=== PATIENT | male | born 1990 | race African-American/Black ===

== ENCOUNTER 2017-08-04 13:08 | Emergency (ER) | payer MEDICAID ==
[~2017-08-04] VITALS: Ht 180.3 cm; Wt 74.8 kg
[2017-08-04 13:17] VITALS: BP 164/98
[2017-08-04] MEDS ORDERED: NALOXONE HCL 0.4 MG/ML VIAL ONE (13:27)
[2017-08-04] MEDS ORDERED: NALOXONE HCL 0.4 MG/ML VIAL IM ONE (13:30)
[2017-08-04 13:56] LABS: Basophils # (auto) 0.1 uL; Basophils % (auto) 1.2 % (0.0-2.0); Eosinophils # (auto) 0.1 uL; Eosinophils % (auto) 2.5 % (0.0-7.0); Hemoglobin 10.8 g/dL (13.5-17.5); Lymphocytes # (auto) 2.5 uL; Lymphocytes % (auto) 53.8 % (10.0-50.0); Mean Corpuscular Hemoglobin 30.7 pg (28.0-32.0); Mean Corpuscular Hgb Conc. 32.7 g/dL (32.0-36.0); Mean Corpuscular Volume 93.8 fL (80.0-100.0); Mean Platelet Volume 7.1 fL (6.9-10.8); Monocytes # (auto) 0.4 uL; Monocytes % (auto) 9.4 % (0.0-12.0); Neutrophils # (auto) 1.5 uL; Neutrophils % (auto) 33.1 % (37.0-80.0); Nucleated Red Blood Cells % 0.2 %; Platelet Count (auto) 240 10^3/uL (140-450); Red Cell Distribution Width 17.3 % (11.8-14.3); White Blood Cell 4.6 10^3/uL (4.4-10.8)
[2017-08-04 14:12] LABS: Amylase 85 U/L (25-115)
[2017-08-04 14:15] LABS: Lactic Acid w/Reflex 2.2 mmol/L (0.4-2.0)
[2017-08-04 14:18] LABS: Albumin 2.9 g/dL (3.4-5.0); Alkaline Phosphatase 90 U/L (45-117); Anion Gap 6 (5-15); Aspartate Aminotransferase 99 U/L (15-37); BUN/Creatinine Ratio 14.9; Bilirubin, Total 0.4 mg/dL (0.2-1.0); Blood Urea Nitrogen 11 mg/dL (7-18); Carbon Dioxide 24 mmol/L (21-32); Chloride 108 mmol/L (98-107); GFR African American 163 mL/min; GFR Non-African American 135 mL/min; Glucose 102 mg/dL (74-106); Potassium 4.2 mmol/L (3.5-5.1); Sodium 138 mmol/L (136-145); Total Protein 7.9 g/dL (6.4-8.2)
[2017-08-04 14:19] LABS: REFLEX LACTIC ACID YES OR NO YES
[2017-08-04] MEDS ORDERED: SODIUM CHLORIDE 0.9% 1,000 ML IVB ONE (14:31)
== END 2017-08-04 15:21 | disposition left against medical advice (07) ==
LOC: EDBD 13:08 → ER 13:24
DX: F11.10 Opioid abuse, uncomplicated (principal); R07.9 Chest pain, unspecified; F17.210 Nicotine dependence, cigarettes, uncomplicated
CPT/HCPCS: 36415; 71010; 80053; 82150; 83605; 83690; 84484; 85025; 87040; 93005; 94761; 96372; 99285; J2310

== ENCOUNTER 2017-09-06 00:27 | Emergency (ER) | payer MEDICAID ==
[~2017-09-06] VITALS: Ht 190.5 cm; Wt 52.2 kg
[2017-09-06 02:00] LABS: Basophils # (auto) 0 uL; Basophils % (auto) 0.5 % (0.0-2.0); Eosinophils # (auto) 0.1 uL; Eosinophils % (auto) 1.8 % (0.0-7.0); Hematocrit 32.8 % (41.0-53.0); Hemoglobin 10.7 g/dL (13.5-17.5); Lymphocytes # (auto) 2.5 uL; Lymphocytes % (auto) 40.8 % (10.0-50.0); Mean Corpuscular Hemoglobin 30.2 pg (28.0-32.0); Mean Corpuscular Hgb Conc. 32.6 g/dL (32.0-36.0); Mean Corpuscular Volume 92.7 fL (80.0-100.0); Monocytes # (auto) 0.7 uL; Monocytes % (auto) 11.9 % (0.0-12.0); Neutrophils # (auto) 2.7 uL; Nucleated Red Blood Cells % 0.1 %; Platelet Count (auto) 264 10^3/uL (140-450); Red Cell Distribution Width 17.4 % (11.8-14.3)
[2017-09-06 02:20] LABS: Albumin 3.3 g/dL (3.4-5.0); Anion Gap 6 (5-15); BUN/Creatinine Ratio 17.4; Blood Urea Nitrogen 15 mg/dL (7-18); Calcium 9.1 mg/dL (8.5-10.1); Carbon Dioxide 30 mmol/L (21-32); Chloride 107 mmol/L (98-107); GFR African American 137 mL/min; GFR Non-African American 113 mL/min; Glucose 87 mg/dL (74-106); Potassium 4.5 mmol/L (3.5-5.1); Sodium 143 mmol/L (136-145)
[2017-09-06 02:28] LABS: Alkaline Phosphatase 83 U/L (45-117); Aspartate Aminotransferase 36 U/L (15-37); Bilirubin, Total 0.6 mg/dL (0.2-1.0); Total Protein 8.9 g/dL (6.4-8.2)
[2017-09-06 02:50] VITALS: BP 154/94
== END 2017-09-06 03:19 ==
LOC: ER 00:37
DX: F11.20 Opioid dependence, uncomplicated (principal); F17.210 Nicotine dependence, cigarettes, uncomplicated; F15.10 Other stimulant abuse, uncomplicated
CPT/HCPCS: 36415; 71010; 80053; 80307; 80320; 84484; 85025; 99285; J7030

== ENCOUNTER 2019-03-21 07:18 | Emergency (ER) | payer MEDICAID ==
[2019-03-21] MEDS ORDERED: SODIUM CHLORIDE 0.9% 1,000 ML IVB ONE (07:38)
[2019-03-21] MEDS ORDERED: LORazepam 2MG/ML-1ML VIAL IV ONE (07:45)
[2019-03-21 08:10] LABS: Basophils # (auto) 0 uL; Basophils % (auto) 0.3 % (0.0-2.0); Eosinophils # (auto) 0.1 uL; Eosinophils % (auto) 0.8 % (0.0-7.0); Hematocrit 30.3 % (41.0-53.0); Hemoglobin 9.8 g/dL (13.5-17.5); Lymphocytes # (auto) 3.3 uL; Lymphocytes % (auto) 31.4 % (10.0-50.0); Mean Corpuscular Hemoglobin 30.1 pg (28.0-32.0); Mean Corpuscular Hgb Conc. 32.5 g/dL (32.0-36.0); Mean Corpuscular Volume 92.7 fL (80.0-100.0); Monocytes # (auto) 1.1 uL; Monocytes % (auto) 10.1 % (0.0-12.0); Neutrophils # (auto) 6.1 uL; Neutrophils % (auto) 57.4 % (37.0-80.0); Nucleated Red Blood Cells % 0.2 %; Platelet Count (auto) 253 10^3/uL (140-450); Red Blood Cells 3.27 10^6/uL (4.5-5.90); Red Cell Distribution Width 19.3 % (11.8-14.3); White Blood Cell 10.6 10^3/uL (4.4-10.8)
[2019-03-21 08:28] LABS: Albumin 3.2 g/dL (3.4-5.0); Calcium 8.6 mg/dL (8.5-10.1); Magnesium 1.7 mg/dL (1.6-2.6); Potassium 4.5 mmol/L (3.5-5.1)
[2019-03-21 08:32] LABS: Bilirubin, Total 0.8 mg/dL (0.2-1.0)
[2019-03-21] MEDS ORDERED: SODIUM CHLORIDE 0.9% 500 ML IV ONE (19:00)
[2019-03-21 20:22] VITALS: BP 142/83
== END 2019-03-21 22:25 | disposition home or self-care (01) ==
LOC: ER 07:18
DX: F16.159 Hallucinogen abuse with hallucinogen-induced psychotic disorder, unspecified (principal); F15.10 Other stimulant abuse, uncomplicated; F11.10 Opioid abuse, uncomplicated; F17.210 Nicotine dependence, cigarettes, uncomplicated; F24 Shared psychotic disorder; D64.9 Anemia, unspecified; B20 Human immunodeficiency virus [HIV] disease
CPT/HCPCS: 36415; 80053; 83735; 85025; 93005; 94761; 96374; 99284; J2060; J7030; J7040

== ENCOUNTER 2019-09-30 23:49 | Inpatient (IN) | payer MEDICAID ==
[~2019-09-30] VITALS: Ht 190.5 cm; Wt 78.9 kg
[2019-10-01] MEDS ORDERED: SODIUM CHLORIDE 0.9% 2,700 ML IV ONE (01:15)
[2019-10-01 01:17] LABS: Basophils # (auto) 0 uL; Eosinophils # (auto) 0.3 uL; Lymphocytes # (auto) 2.2 uL; Monocytes # (auto) 0.4 uL; Nucleated Red Blood Cells % 0.1 %
[2019-10-01 01:19] LABS: Basophils % (auto) 0.4 % (0.0-2.0); Eosinophils % (auto) 6.7 % (0.0-7.0); Hematocrit 25.5 % (41.0-53.0); Hemoglobin 8.2 g/dL (13.5-17.5); Lymphocytes % (auto) 45.5 % (10.0-50.0); Mean Corpuscular Hemoglobin 28.7 pg (28.0-32.0); Mean Corpuscular Hgb Conc. 32.3 g/dL (32.0-36.0); Mean Corpuscular Volume 88.9 fL (80.0-100.0); Monocytes % (auto) 8.1 % (0.0-12.0); Neutrophils # (auto) 1.9 uL; Neutrophils % (auto) 39.3 % (37.0-80.0); Platelet Count (auto) 312 10^3/uL (140-450); Red Blood Cells 2.87 10^6/uL (4.5-5.90); Red Cell Distribution Width 17.2 % (11.8-14.3); White Blood Cell 4.8 10^3/uL (4.4-10.8)
[2019-10-01 01:30] LABS: Alanine Aminotransferase 22 U/L (16-61); Albumin 2.4 g/dL (3.4-5.0); Anion Gap 6 (5-15); Aspartate Aminotransferase 21 U/L (15-37); BUN/Creatinine Ratio 12.4; Blood Urea Nitrogen 11 mg/dL (7-18); Calcium 7.9 mg/dL (8.5-10.1); Carbon Dioxide 27 mmol/L (21-32); Chloride 105 mmol/L (98-107); GFR African American 130 mL/min; GFR Non-African American 107 mL/min; Glucose 79 mg/dL (74-106); Potassium 3.9 mmol/L (3.5-5.1); Sodium 138 mmol/L (136-145)
[2019-10-01 01:34] LABS: INR 1.06 (0.9-1.15); Partial Thromboplastin Time 32.4 sec (23.64-32.05)
[2019-10-01 01:35] LABS: Alkaline Phosphatase 73 U/L (45-117); Bilirubin, Total 0.4 mg/dL (0.2-1.0); Total Protein 8.9 g/dL (6.4-8.2)
[2019-10-01] MEDS ORDERED: cefTRIAXone SOD 1,000 MG VL ONE (04:58)
[2019-10-01] MEDS ORDERED: VANCOMYCIN 1GM/250ML 250 ML IV ONE ×2 (04:58→05:00)
[2019-10-01] MEDS ORDERED: cefTRIAXone 1GM/50ML D5W 50 ML IV ONE ×2 (05:00→12:45)
[2019-10-01] MEDS ORDERED: SULFAMETH-TRIMETH 80/16MG-ML 15 ML in D5W 5% 500 ML IV SCH ×2 (06:00→14:00)
[2019-10-01] MEDS ORDERED: ALBUTEROL SULF 2.5 MG/0.5ML(0.5%) NEB SOLN NEB PRN ×2 (06:00→12:45)
[2019-10-01] MEDS ORDERED: ACETAMINOPHEN 325 MG TAB PO PRN (06:00)
[2019-10-01] MEDS ORDERED: ONDANSETRON HCL 4 MG/2 ML VIAL IV PRN (06:00)
[2019-10-01] MEDS ORDERED: TEMAZEPAM 15 MG CAP PO PRN (06:00)
[2019-10-01 07:08] VITALS: BP 134/101
[2019-10-01 07:20] LABS: Urine Bacteria NONE SEEN /hpf (None Seen); Urine Blood TRACE /uL (Negative); Urine Mucus FEW (None Seen); Urine Specific Gravity 1.016 (1.001-1.035); Urine WBC <1 /hpf (0 - 3)
--- NOTE | 2019-10-01 07:41 | NUR ---
Patient arrived on floor from Emergency Room. Patient is awake/alert and oriented x 4. No complaints of pain noted. Will monitor for any changes in condition.
[2019-10-01 07:53] LABS: Alcohol, Urine < 3.0 mg/dL (0-5); Amphetamine Screen, Urine POSITIVE (NEGATIVE); Barbiturate Scree,Urine NEGATIVE (NEGATIVE); Benzodiazephine Screen, Urine NEGATIVE (NEGATIVE); Cannabinoid Screen, Urine NEGATIVE (NEGATIVE); Cocaine Screen, Urine NEGATIVE (NEGATIVE); Opiate Scree,Urine POSITIVE (NEGATIVE); Phencyclidine Screen, Urine NEGATIVE (NEGATIVE)
--- NOTE | 2019-10-01 08:13 | NUR ---
Respiratory note: ASSESSED PT FOR PRN TX PT WAS AWAKE AND ALERT NO RESP DISTRESS NOTED. HR 90, RR 16, SPO2 100%. BS ARE CLEAR AND DIMINISHED, NO INDICATION FOR TX AT THIS TIME. PT KNOWS TO HAVE RT PAGED IF TX IS NEEDED.
[2019-10-01 09:22] VITALS: BP 129/73
[2019-10-01] MEDS: FAMOTIDINE 20 MG TAB PO SCH ×2 (10:37→22:02)
[2019-10-01] MEDS ORDERED: ACETYLCYSTEINE 10 %(100MG/ML) SOL 4ML NEB SCH (12:45)
[2019-10-01] MEDS ORDERED: AZITHROMYCIN 500MG/ 250ML 250 ML IV ONE (12:45)
[2019-10-01 13:00] VITALS: BP 130/68
[2019-10-01] MEDS: EMTRICITABINE-TENOFOVIR 200/300MG(TRUVADA) PO SCH (16:30)
[2019-10-01 17:00] VITALS: BP 143/82
--- NOTE | 2019-10-01 19:40 | NUR ---
Opening Shift Note Assumed care of patient, awake and alert. No S/S of distress/SOB or pain. Instructed on POC and to call for assist PRN. Bed in lowest locked position, call light within reach, side rails up x2. Will continue to monitor for changes Q1hr and PRN.
[2019-10-01] MEDS: ALBUTEROL SULF 2.5 MG/0.5ML(0.5%) NEB SOLN NEB SCH (19:49)
[2019-10-01] MEDS: ACETYLCYSTEINE 10 %(100MG/ML) SOL 4ML NEB SCH (19:49)
[2019-10-01 22:00] VITALS: BP 148/86
[2019-10-02] MEDS: ALBUTEROL SULF 2.5 MG/0.5ML(0.5%) NEB SOLN NEB SCH ×3 (00:28→11:57)
[2019-10-02] MEDS: ACETYLCYSTEINE 10 %(100MG/ML) SOL 4ML NEB SCH ×3 (00:29→11:58)
[2019-10-02 05:00] VITALS: BP 133/79
[2019-10-02 06:31] LABS: Basophils # (auto) 0 uL; Basophils % (auto) 0.4 % (0.0-2.0); Eosinophils # (auto) 0.2 uL; Eosinophils % (auto) 4.3 % (0.0-7.0); Hematocrit 29.7 % (41.0-53.0); Hemoglobin 9.8 g/dL (13.5-17.5); Lymphocytes # (auto) 2.5 uL; Lymphocytes % (auto) 48.4 % (10.0-50.0); Mean Corpuscular Hemoglobin 28.7 pg (28.0-32.0); Mean Corpuscular Hgb Conc. 32.8 g/dL (32.0-36.0); Mean Corpuscular Volume 87.4 fL (80.0-100.0); Monocytes # (auto) 0.5 uL; Monocytes % (auto) 9.8 % (0.0-12.0); Neutrophils # (auto) 1.9 uL; Neutrophils % (auto) 37.1 % (37.0-80.0); Nucleated Red Blood Cells % 0.5 %; Platelet Count (auto) 361 10^3/uL (140-450); Red Cell Distribution Width 17.1 % (11.8-14.3); White Blood Cell 5.2 10^3/uL (4.4-10.8)
[2019-10-02 06:51] LABS: Calcium 7.6 mg/dL (8.5-10.1); Potassium 3.8 mmol/L (3.5-5.1)
[2019-10-02 06:54] LABS: BUN/Creatinine Ratio 10.6
--- NOTE | 2019-10-02 07:30 | NUR ---
Opening Shift Note Assumed care of patient, awake and alert. No S/S of distress/SOB or pain. For safety patients bed is locked, in the lowest position, with 2 side rails up. Instructed on POC and to call for assist PRN, will continue to monitor for any changes in condition.
[2019-10-02 08:00] VITALS: BP 126/73
[2019-10-02] MEDS ORDERED: cefTRIAXone 1GM/50ML D5W 50 ML IV SCH (09:00)
[2019-10-02] MEDS: FAMOTIDINE 20 MG TAB PO SCH (09:09)
[2019-10-02] MEDS: EMTRICITABINE-TENOFOVIR 200/300MG(TRUVADA) PO SCH (09:10)
[2019-10-02] MEDS ORDERED: EMTRICITABINE PO SCH (10:00)
[2019-10-02] MEDS ORDERED: AZITHROMYCIN 500MG/ 250ML 250 ML IV SCH (10:00)
[2019-10-02] MEDS ORDERED: [UNRECOGNIZED DRUG - OTHER] PO SCH (10:00)
[2019-10-02] MEDS ORDERED: TENOFOVIR DISOPROXIL FUMARATE PO SCH (10:00)
[2019-10-02] MEDS ORDERED: LEVO750T64 PO (11:23)
[2019-10-02] MEDS ORDERED: AZIT500T66 PO (11:23)
[2019-10-02 11:59] VITALS: BP 137/77
--- NOTE | 2019-10-02 13:48 | NUR ---
Discharge instructions given as ordered. Encourage to follow up with the [facility] department in [place] for follow up care as instructed. All questions and concerns addressed. Patient verbalized understanding. Medication reconciliation form completed and copy given to patient. IV removed with catheter intact, and pressure dressing applied. Patient taken to vehicle via wheelchair with all personal belongings, accompanied by staff. No distress noted at time of departure.
== END 2019-10-02 13:55 | disposition home or self-care (01) | DRG 139 ==
LOC: EDBD 23:49 → ER 23:51 → WEST WING 23:52
PROVIDERS: ADMIT Nurse Practitioner; ATTEND Internal Medicine
DX: J18.9 Pneumonia, unspecified organism (principal); E43 Unspecified severe protein-calorie malnutrition; G47.00 Insomnia, unspecified; D64.9 Anemia, unspecified; Z82.49 Family history of ischemic heart disease and other diseases of the circulatory system; Z68.21 Body mass index [BMI] 21.0-21.9, adult
CPT/HCPCS: 36415; 71045; 71046; 80048; 80053; 80307; 81001; 83605; 83615; 83880; 84484; 85025; 85610; 85730; 86360; 87040; 94640; 96365; 96368; G0378; J0696; J3490

== ENCOUNTER 2019-10-10 17:10 | Emergency (ER) | payer MEDICAID ==
[~2019-10-10] VITALS: Ht 188 cm; Wt 104.3 kg
[~2019-10-10 17:10] MED LIST: AZIT500T66 PO; LEVO750T64 PO
[2019-10-10] MEDS ORDERED: NALOXONE HCL 0.4 MG/ML VIAL IV ONE (17:30)
[2019-10-10] MEDS ORDERED: SODIUM CHLORIDE 0.9% 1,000 ML IVB ONE (17:39)
[2019-10-10 18:00] VITALS: BP 123/74
[2019-10-10 18:10] LABS: Basophils # (auto) 0 uL; Eosinophils # (auto) 0 uL; Hemoglobin 7.7 g/dL (13.5-17.5); Lymphocytes # (auto) 0.6 uL; Monocytes # (auto) 0 uL; Monocytes % (auto) 0.8 % (0.0-12.0); Neutrophils # (auto) 3.4 uL; Nucleated Red Blood Cells % 0.2 %
[2019-10-10 18:12] LABS: Basophils % (auto) 0.2 % (0.0-2.0); Eosinophils % (auto) 0.5 % (0.0-7.0); Hematocrit 23.7 % (41.0-53.0); Lymphocytes % (auto) 15.5 % (10.0-50.0); Mean Corpuscular Hemoglobin 29.2 pg (28.0-32.0); Mean Corpuscular Hgb Conc. 32.5 g/dL (32.0-36.0); Mean Corpuscular Volume 90.1 fL (80.0-100.0); Platelet Count (auto) 209 10^3/uL (140-450); Red Blood Cells 2.64 10^6/uL (4.5-5.90); Red Cell Distribution Width 19.4 % (11.8-14.3)
[2019-10-10 18:30] LABS: Acetaminophen < 2.0 ug/mL (10-30); Salicylate < 1.7 mg/dL (2.8-20.0)
[2019-10-10 18:32] LABS: Alanine Aminotransferase 72 U/L (16-61); Albumin 2.4 g/dL (3.4-5.0); Anion Gap 7 (5-15); Aspartate Aminotransferase 164 U/L (15-37); BUN/Creatinine Ratio 14.4; Blood Alcohol < 3.0 mg/dL (0-5); Blood Urea Nitrogen 19 mg/dL (7-18); Carbon Dioxide 24 mmol/L (21-32); Chloride 111 mmol/L (98-107); GFR African American 82 mL/min; GFR Non-African American 68 mL/min; Glucose 91 mg/dL (74-106); Magnesium 1.2 mg/dL (1.6-2.6); Potassium 3.8 mmol/L (3.5-5.1); Sodium 142 mmol/L (136-145)
[2019-10-10 18:35] LABS: Alkaline Phosphatase 110 U/L (45-117); Bilirubin, Total 0.9 mg/dL (0.2-1.0); Total Protein 7.4 g/dL (6.4-8.2)
[2019-10-10] MEDS ORDERED: LORazepam 2MG/ML-1ML VIAL IV ONE ×2 (19:15→22:45)
[2019-10-10] MEDS ORDERED: SODIUM CHLORIDE 0.9% 1,000 ML IV ONE (19:15)
[2019-10-10] MEDS ORDERED: ACETAMINOPHEN 500 MG TAB PO ONE (21:15)
[2019-10-10] MEDS ORDERED: cefTRIAXone 1GM/50ML D5W 50 ML IV ONE (21:15)
== END 2019-10-11 01:37 | disposition home or self-care (01) ==
LOC: ER 17:13
DX: T40.601A Poisoning by unspecified narcotics, accidental (unintentional), initial encounter (principal); J18.9 Pneumonia, unspecified organism; R55 Syncope and collapse; F17.210 Nicotine dependence, cigarettes, uncomplicated; F11.10 Opioid abuse, uncomplicated; Y92.89 Other specified places as the place of occurrence of the external cause
CPT/HCPCS: 36415; 71045; 80053; 80320; 80329; 83605; 83735; 85025; 87040; 93005; 96361; 96365; 96375; 99284; J0696; J2060; J7030

== ENCOUNTER 2020-05-28 01:33 | Inpatient (IN) | payer MEDICAID ==
[~2020-05-28] VITALS: Ht 190.5 cm; Wt 87.7 kg
[2020-05-28 02:16] LABS: Hemoglobin 12.1 g/dL (13.5-17.5); Mean Corpuscular Hgb Conc. 32.8 g/dL (32.0-36.0); Mean Corpuscular Volume 91.5 fL (80.0-100.0); Platelet Count (auto) 257 10^3/uL (140-450); Red Blood Cells 4.04 10^6/uL (4.5-5.90); Red Cell Distribution Width 15.4 % (11.8-14.3); White Blood Cell 5.5 10^3/uL (4.4-10.8)
[2020-05-28 02:31] LABS: Basophils % (manual) 0 (0.0-2.0); Blast Cells 0; Metamyelocytes % 0; Myelocytes % 0; Promyelocytes % 0; Reactive Lymphocytes 0
[2020-05-28 02:40] LABS: INR 0.97 (0.9-1.15); Partial Thromboplastin Time 27.6 sec (23.0-31.2)
[2020-05-28 02:47] LABS: Alanine Aminotransferase 31 U/L (16-61); Albumin 3.4 g/dL (3.4-5.0); Anion Gap 4 (5-15); Aspartate Aminotransferase 29 U/L (15-37); BUN/Creatinine Ratio 16.8; Blood Urea Nitrogen 18 mg/dL (7-18); Calcium 8.9 mg/dL (8.5-10.1); Carbon Dioxide 32 mmol/L (21-32); Chloride 101 mmol/L (98-107); GFR African American 104 mL/min; GFR Non-African American 86 mL/min; Glucose 94 mg/dL (74-106); Sodium 137 mmol/L (136-145)
[2020-05-28 02:52] LABS: Alkaline Phosphatase 90 U/L (45-117); Bilirubin, Total 0.7 mg/dL (0.2-1.0); Total Protein 9.6 g/dL (6.4-8.2)
[2020-05-28 02:59] LABS: Band Neutrophils % (manual) 4; Eosinophils % (manual) 7 (0-7); Lymphocytes % (manual) 72 (10.0-50.0); Monocytes % (manual) 6 (0-12)
[2020-05-28 04:30] LABS: Alcohol, Urine < 3.0 mg/dL (0-10); Amphetamine Screen, Urine POSITIVE (NEGATIVE); Barbiturate Scree,Urine NEGATIVE (NEGATIVE); Benzodiazephine Screen, Urine NEGATIVE (NEGATIVE); Cannabinoid Screen, Urine NEGATIVE (NEGATIVE); Cocaine Screen, Urine NEGATIVE (NEGATIVE); Phencyclidine Screen, Urine NEGATIVE (NEGATIVE)
[2020-05-28 04:38] LABS: Opiate Scree,Urine POSITIVE (NEGATIVE)
[2020-05-28] MEDS ORDERED: IOHEXOL 300 MG/ML 100ML BOTTLE IJ ONE (05:54)
[2020-05-28] MEDS ORDERED: IOHEXOL 350 MG/ML 100ML IJ ONE (06:25)
[2020-05-28] MEDS ORDERED: PIPERACILLIN-TAZOB 3.375GM 100 ML IV ONE (07:45)
[2020-05-28] MEDS ORDERED: VANCOMYCIN 1GM/250ML 250 ML IV ONE (12:15)
[2020-05-28] MEDS: SODIUM CHLORIDE 0.9% 1,000 ML IV SCH ×2 (12:57→20:57)
[2020-05-28] MEDS ORDERED: traMADol HCL 50 MG TAB PO PRN (13:00)
[2020-05-28] MEDS ORDERED: VANCOMYCIN PER PHARMACY 0 MG IV SCH (13:00)
[2020-05-28] MEDS ORDERED: ACETAMINOPHEN 500 MG TAB PO PRN (13:00)
[2020-05-28] MEDS ORDERED: PROMETHAZINE HCL 25 MG/ML 1ML IV PRN (13:00)
[2020-05-28] MEDS ORDERED: NITROGLYCERIN 0.4 MG SL TAB SL PRN (13:00)
[2020-05-28] MEDS ORDERED: cefTRIAXone 1GM/50ML D5W 50 ML IV ONE (13:00)
[2020-05-28] MEDS ORDERED: TEMAZEPAM 15 MG CAP PO PRN (13:00)
[2020-05-28] MEDS ORDERED: MORPHINE SULF INJ 2 MG/ML SYRINGE 1ML IV PRN (13:00)
[2020-05-28] MEDS ORDERED: NICOTINE 21MG/24 HR TOPICAL PATCH TD ONE (13:15)
[2020-05-28] MEDS: MORPHINE SULF INJ 2 MG/ML SYRINGE 1ML IV PRN ×3 (14:55→20:49)
--- NOTE | 2020-05-28 19:10 | NUR ---
Opening Shift Note Assumed care of patient, awake and alert. No S/S of distress/SOB or pain. Instructed on POC and to call for assistance PRN, will continue to monitor for changes Q1hr and PRN. Safety precautions in place bed is in lowest position and locked, bed rails 2x. Call light and bedside table are within reach.
[2020-05-28] MEDS: VANCOMYCIN 1GM/250ML 250 ML IV SCH (20:23)
[2020-05-28] MEDS: cefTRIAXone 1GM/50ML D5W 50 ML IV SCH (21:21)
[2020-05-28 22:00] VITALS: BP 141/75
[2020-05-29] MEDS: MORPHINE SULF INJ 2 MG/ML SYRINGE 1ML IV PRN ×2 (01:37→13:46)
[2020-05-29] MEDS: VANCOMYCIN 1GM/250ML 250 ML IV SCH ×2 (04:00→12:23)
[2020-05-29] MEDS: SODIUM CHLORIDE 0.9% 1,000 ML IV SCH ×2 (04:18→12:23)
[2020-05-29 05:05] LABS: Hematocrit 33.5 % (41.0-53.0); Hemoglobin 10.8 g/dL (13.5-17.5); Mean Corpuscular Hemoglobin 29.5 pg (28.0-32.0); Mean Corpuscular Hgb Conc. 32.1 g/dL (32.0-36.0); Platelet Count (auto) 228 10^3/uL (140-450); Red Blood Cells 3.65 10^6/uL (4.5-5.90); White Blood Cell 4.9 10^3/uL (4.4-10.8)
[2020-05-29 05:19] LABS: Band Neutrophils % (manual) 0; Basophils % (manual) 0 (0.0-2.0); Blast Cells 0; Metamyelocytes % 0; Myelocytes % 0; Promyelocytes % 0; Reactive Lymphocytes 0
[2020-05-29 05:26] LABS: BUN/Creatinine Ratio 13.3; Calcium 8.4 mg/dL (8.5-10.1); Potassium 3.8 mmol/L (3.5-5.1)
[2020-05-29 05:58] VITALS: BP 127/86
--- NOTE | 2020-05-29 07:05 | NUR ---
End of Shift Note Endorsed care to dayshift RN. At this time patient has no s/s of distress or SOB.
[2020-05-29 07:59] LABS: Eosinophils % (manual) 7 (0-7); Lymphocytes % (manual) 60 (10.0-50.0); Monocytes % (manual) 8 (0-12)
[2020-05-29] MEDS: cefTRIAXone 1GM/50ML D5W 50 ML IV SCH (08:25)
[2020-05-29 09:00] VITALS: BP 129/73
[2020-05-29 13:00] VITALS: BP 136/87
--- NOTE | 2020-05-29 16:17 | NUR ---
Patient eloped This nurse was notified after returning from lunch that a second COVID swab was needed. Went in to patient's room and he was not in the room or bathroom. He did not have an AMA to go smoke. Waited 20-30 minutes and went back. Patient was still not in room. His tank top, socks, mask, and cell phone were still in the room. Charge nurse was notified. Hospital security was notified. Security, charge nurses, and this nurse all looked around the inside of the hospital and did not find the patient anywhere. Patient had unhooked the IV from the machine. This nurse contacted the sherriff's department because the patient still has an IV intact as far as we know. He also still had the telemetry box on when last seen. Charge nurse is aware of this. Belongings were collected in patient belongings bag and placed in locked soiled utility room per charge nurse.
--- NOTE | 2020-05-29 17:00 | NUR ---
Update - tele box returned Patient returned to the ED requesting his cell phone that he had left in his room. The charge nurse went downstairs and said he needed to return the telemetry box. He left and came back and returned the telemetry box and was given his belongings.
== END 2020-05-29 16:17 | disposition left against medical advice (07) | DRG 139 ==
LOC: ER 01:33 → TELE 01:34 → TELE-WESTW 18:03
PROVIDERS: ADMIT Internal Medicine; ATTEND Internal Medicine
DX: J18.9 Pneumonia, unspecified organism (principal); F11.90 Opioid use, unspecified, uncomplicated; F15.90 Other stimulant use, unspecified, uncomplicated; F17.210 Nicotine dependence, cigarettes, uncomplicated; Z53.29 Procedure and treatment not carried out because of patient's decision for other reasons; R07.89 Other chest pain; I10 Essential (primary) hypertension; I76 Septic arterial embolism; Z82.49 Family history of ischemic heart disease and other diseases of the circulatory system; Z21 Asymptomatic human immunodeficiency virus [HIV] infection status
CPT/HCPCS: 36415; 71045; 71275; 80048; 80053; 80202; 80307; 80320; 82550; 83880; 84484; 85007; 85025; 85027; 85379; 85610; 85652; 85730; 87040; 93005; 93306; 96365; 96366; 96367; 96368; G0378; J0696; J2543

== ENCOUNTER 2021-04-27 09:39 | Emergency (ER) | payer MEDICAID, OTHER ==
[~2021-04-27] VITALS: Ht 190.5 cm; Wt 90.7 kg
[~2021-04-27 09:39] MED LIST changes: -AZIT500T66 PO; +DOCU-94 PO; +IBUP600T27 PO; -LEVO750T64 PO; +PANT40TA2 PO
[2021-04-27 10:42] VITALS: BP 147/95
[2021-04-27] MEDS ORDERED: KETOROLAC TROMETH 60MG/2ML VIAL IM ONE (10:45)
== END 2021-04-27 11:22 | disposition home or self-care (01) ==
LOC: ER 09:39
DX: S50.821A Blister (nonthermal) of right forearm, initial encounter (principal); S80.821A Blister (nonthermal), right lower leg, initial encounter; G43.909 Migraine, unspecified, not intractable, without status migrainosus; I10 Essential (primary) hypertension; F17.210 Nicotine dependence, cigarettes, uncomplicated; Z79.1 Long term (current) use of non-steroidal anti-inflammatories (NSAID); Z79.899 Other long term (current) drug therapy; X58.XXXA Exposure to other specified factors, initial encounter; Y93.89 Activity, other specified; Y92.89 Other specified places as the place of occurrence of the external cause; Y99.8 Other external cause status
CPT/HCPCS: 96372; 99283; J1885

== ENCOUNTER 2021-05-14 13:10 | Inpatient (IN) | payer MEDICAID ==
[~2021-05-14] VITALS: Ht 195.6 cm; Wt 79.3 kg
[2021-05-14] MEDS ORDERED: SODIUM CHLORIDE 0.9% 500 ML IV ONE (13:30)
[2021-05-14 15:18] LABS: Basophils # (auto) 0 10 ^3/uL (0-0.2); Eosinophils # (auto) 0.5 10 ^3/uL (0-0.8); Eosinophils % (auto) 13.5 % (0.0-7.0); Hematocrit 31.2 % (41.0-53.0); Hemoglobin 10.2 g/dL (13.5-17.5); Lymphocytes # (auto) 1.7 10 ^3/uL (0.4-5.4); Lymphocytes % (auto) 42.4 % (10.0-50.0); Mean Corpuscular Hgb Conc. 32.8 g/dL (32.0-36.0); Mean Corpuscular Volume 88.6 fL (80.0-100.0); Monocytes # (auto) 0.3 10 ^3/uL (0-1.3); Monocytes % (auto) 8.4 % (0.0-12.0); Neutrophils # (auto) 1.4 10 ^3/uL (1.6-8.6); Neutrophils % (auto) 34.7 % (37.0-80.0); Nucleated Red Blood Cells % 0.2 %; Red Blood Cells 3.52 10^6/uL (4.5-5.90); Red Cell Distribution Width 16.6 % (11.8-14.3)
[2021-05-14 15:34] LABS: Albumin 3.1 g/dL (3.4-5.0); Anion Gap 4 (5-15); Blood Urea Nitrogen 11 mg/dL (7-18); Calcium 8.5 mg/dL (8.5-10.1); Carbon Dioxide 27 mmol/L (21-32); Chloride 106 mmol/L (98-107); Glucose 85 mg/dL (74-106); Potassium 3.8 mmol/L (3.5-5.1); Sodium 137 mmol/L (136-145)
[2021-05-14 15:39] LABS: Alanine Aminotransferase 25 U/L (16-61); Alkaline Phosphatase 93 U/L (45-117); Aspartate Aminotransferase 31 U/L (15-37); BUN/Creatinine Ratio 13.8; Bilirubin, Total 0.6 mg/dL (0.2-1.0); GFR African American 145 mL/min; GFR Non-African American 120 mL/min; Total Protein 10.1 g/dL (6.4-8.2)
[2021-05-14] MEDS ORDERED: ONDANSETRON HCL 4 MG/2 ML VIAL IV PRN (18:30)
[2021-05-14] MEDS ORDERED: ACETAMINOPHEN 500 MG TAB PO PRN (18:30)
[2021-05-14] MEDS ORDERED: NITROGLYCERIN 0.4 MG SL TAB SL PRN (18:30)
[2021-05-14] MEDS ORDERED: SODIUM CHLORIDE 0.9% 1,000 ML IV ONE (18:30)
[2021-05-15 04:27] LABS: Urine Bacteria NONE SEEN /hpf (None Seen); Urine Blood Negative /uL (Negative); Urine Hyaline Cast FEW /lpf (0 - 2); Urine Mucus FEW (None Seen); Urine Specific Gravity 1.027 (1.001-1.035); Urine WBC 2 /hpf (0 - 3)
[2021-05-15 04:30] LABS: Alcohol, Urine < 3.0 mg/dL (0-10); Amphetamine Screen, Urine POSITIVE (NEGATIVE); Barbiturate Scree,Urine NEGATIVE (NEGATIVE); Benzodiazephine Screen, Urine NEGATIVE (NEGATIVE); Cannabinoid Screen, Urine NEGATIVE (NEGATIVE); Cocaine Screen, Urine NEGATIVE (NEGATIVE); Opiate Scree,Urine POSITIVE (NEGATIVE); Phencyclidine Screen, Urine NEGATIVE (NEGATIVE)
[2021-05-15 18:29] VITALS: BP 148/99
[2021-05-15 23:18] VITALS: BP 125/63
[2021-05-16 05:41] VITALS: BP 131/99
[2021-05-16 06:23] LABS: Basophils # (auto) 0 10 ^3/uL (0-0.2); Basophils % (auto) 0.6 % (0.0-2.0); Eosinophils # (auto) 0.3 10 ^3/uL (0-0.8); Hematocrit 31.4 % (41.0-53.0); Hemoglobin 10.6 g/dL (13.5-17.5); Lymphocytes # (auto) 1.8 10 ^3/uL (0.4-5.4); Lymphocytes % (auto) 50.8 % (10.0-50.0); Mean Corpuscular Hemoglobin 29.3 pg (28.0-32.0); Mean Corpuscular Hgb Conc. 33.7 g/dL (32.0-36.0); Mean Corpuscular Volume 86.8 fL (80.0-100.0); Monocytes # (auto) 0.4 10 ^3/uL (0-1.3); Monocytes % (auto) 12.4 % (0.0-12.0); Neutrophils % (auto) 27.2 % (37.0-80.0); Nucleated Red Blood Cells % 0.4 %; Red Blood Cells 3.62 10^6/uL (4.5-5.90); White Blood Cell 3.5 10^3/uL (4.4-10.8)
[2021-05-16 06:54] LABS: BUN/Creatinine Ratio 19.2; Calcium 8.3 mg/dL (8.5-10.1); Magnesium 2.1 mg/dL (1.6-2.6); Potassium 3.6 mmol/L (3.5-5.1)
[2021-05-16 08:30] VITALS: BP 134/79
== END 2021-05-16 12:00 | disposition left against medical advice (07) | DRG 861 ==
LOC: ER 13:10 → TELE 18:23 → TELE-WESTW 05-15 18:02 → WEST WING 05-16 10:47
PROVIDERS: ADMIT Nurse Practitioner Acute Care; ATTEND Internal Medicine
DX: R53.1 Weakness (principal); R04.2 Hemoptysis; E86.0 Dehydration; F11.90 Opioid use, unspecified, uncomplicated; M79.89 Other specified soft tissue disorders; Z20.822 Contact with and (suspected) exposure to COVID-19; F12.90 Cannabis use, unspecified, uncomplicated; I10 Essential (primary) hypertension; Z53.29 Procedure and treatment not carried out because of patient's decision for other reasons; F17.210 Nicotine dependence, cigarettes, uncomplicated; Z91.19 Patient's noncompliance with other medical treatment and regimen; Z79.899 Other long term (current) drug therapy
CPT/HCPCS: 36415; 71045; 80048; 80053; 80307; 81001; 83735; 84484; 85025; 85652; 87040; 87426; 93005; 93306; 93971; 96360; G0378

== ENCOUNTER 2024-06-10 01:35 | Inpatient (IN) | payer MEDICAID ==
[~2024-06-10] VITALS: Ht 190.5 cm; Wt 99.7 kg
[~2024-06-10 01:35] MED LIST changes: +ALBU108A5 INH; +AMLO1TAB23 PO; +BICT1TAB PO; +DIVA250T12 PO; +FLUO-125 PO; +IBUP-1454 PO; -IBUP600T27 PO; +MET25T PO; +QUET50TA PO; +TRAZ-227 PO
[2024-06-10 02:10] LABS: Urine Bacteria None Seen /hpf (None Seen)
[2024-06-10 02:46] LABS: Urine Blood Negative /uL (Negative); Urine Clarity Clear (Clear); Urine Color Light-Yellow (Yellow); Urine Protein, UAD TRACE (Negative); Urine Specific Gravity 1.022 (1.001-1.035); Urine Urobilinogen Normal (Negative); Urine WBC 2 /hpf (0 - 3); Urine pH 6.5 (5.0-9.0)
[2024-06-10 08:03] LABS: Basophils # (auto) 0.1 10 ^3/uL (0-0.2); Eosinophils # (auto) 0.7 10 ^3/uL (0-0.8); Eosinophils % (auto) 12.8 % (0.0-7.0); Hematocrit 33.5 % (41.0-53.0); Hemoglobin 11.1 g/dL (13.5-17.5); Lymphocytes # (auto) 2.5 10 ^3/uL (0.4-5.4); Lymphocytes % (auto) 47.1 % (10.0-50.0); Mean Corpuscular Hemoglobin 33.5 pg (28.0-32.0); Mean Corpuscular Hgb Conc. 33.3 g/dL (32.0-36.0); Mean Corpuscular Volume 100.6 fL (80.0-100.0); Monocytes # (auto) 0.5 10 ^3/uL (0-1.3); Monocytes % (auto) 9.7 % (0.0-12.0); Neutrophils # (auto) 1.6 10 ^3/uL (1.6-8.6); Neutrophils % (auto) 29.4 % (37.0-80.0); Platelet Count (auto) 246 10^3/uL (140-450); Red Blood Cells 3.33 10^6/uL (4.5-5.90); Red Cell Distribution Width 15.1 % (11.8-14.3); White Blood Cell 5.3 10^3/uL (4.4-10.8)
[2024-06-10] MEDS: IOHEXOL 300 MG/ML 100ML BOTTLE IJ ONE (08:06)
[2024-06-10] MEDS: ONDANSETRON HCL 4 MG/2 ML VIAL IV ONE (08:08)
[2024-06-10] MEDS: MORPHINE SULFATE 4 MG/ML SYR/VIAL IV ONE (08:09)
[2024-06-10] MEDS: SODIUM CHLORIDE 0.9% 1,000 ML IV ONE (08:09)
[2024-06-10 08:17] VITALS: PULSE 75; RESP 16; O2SAT 99
[2024-06-10 08:18] LABS: Alanine Aminotransferase 15 U/L (7-40); Alkaline Phosphatase 87 U/L (46-116); Anion Gap 6 (5-15); BUN/Creatinine Ratio 17.6 (10.0-20.0); Blood Urea Nitrogen 18 mg/dL (9-23); Calcium 9.5 mg/dL (8.7-10.4); Carbon Dioxide 24 mmol/L (20-30); Chloride 107 mmol/L (98-107); Glucose 78 mg/dL (74-106); Potassium 3.6 mmol/L (3.5-5.1); Sodium 137 mmol/L (136-145)
[2024-06-10 08:19] LABS: Albumin 4.3 g/dL (3.2-4.8); Aspartate Aminotransferase 21 U/L (13-40); Bilirubin, Total 0.7 mg/dL (0.2-1.0); Total Protein 8.9 g/dL (5.7-8.2)
[2024-06-10 09:08] LABS: Lipase 43 U/L (12-53)
[2024-06-10] MEDS ORDERED: NITROGLYCERIN 0.4 MG SL TAB SL PRN (10:30)
[2024-06-10] MEDS: SODIUM CHLORIDE 0.9% 1,000 ML IV SCH (10:30)
[2024-06-10] MEDS ORDERED: DOCUSATE SOD 100 MG CAP PO PRN (10:30)
[2024-06-10] MEDS ORDERED: ONDANSETRON HCL 4 MG/2 ML VIAL IV PRN (10:30)
[2024-06-10 10:58] LABS: INR 0.97 (0.9-1.15); Prothrombin Time 10.3 sec (9.3-11.8)
[2024-06-10] MEDS: PIPERACILLIN-TAZOB 3.375GM 100 ML IV ONE (12:57)
[2024-06-10] MEDS: HYDROmorphone HCL 2 MG/ML VL/or syr IV ONE (12:57)
[2024-06-10] MEDS: HYDROmorphone HCL 2 MG/ML VL/or syr IV PRN (16:53)
[2024-06-10 17:56] VITALS: BP 156/101; PULSE 59; RESP 18; TEMP 97.6; O2SAT 98
[2024-06-10] MEDS: PIPERACILLIN-TAZOB 3.375GM 100 ML IV SCH (19:07)
[2024-06-10 20:00] VITALS: PULSE 64; RESP 16; O2SAT 95
[2024-06-10 21:00] VITALS: BP 134/90; PULSE 64; RESP 16; TEMP 97.6; O2SAT 95
[2024-06-11 00:48] VITALS: BP 131/91; PULSE 67; RESP 16; TEMP 97.8; O2SAT 99
[2024-06-11 04:43] VITALS: BP 134/94; PULSE 66; RESP 17; TEMP 97.8; O2SAT 98
[2024-06-11 06:05] LABS: Basophils # (auto) 0 10 ^3/uL (0-0.2); Basophils % (auto) 0.9 % (0.0-2.0); Eosinophils # (auto) 0.6 10 ^3/uL (0-0.8); Hematocrit 33.3 % (41.0-53.0); Hemoglobin 11.2 g/dL (13.5-17.5); Lymphocytes # (auto) 1.9 10 ^3/uL (0.4-5.4); Lymphocytes % (auto) 42.6 % (10.0-50.0); Mean Corpuscular Hemoglobin 33.8 pg (28.0-32.0); Mean Corpuscular Hgb Conc. 33.7 g/dL (32.0-36.0); Mean Corpuscular Volume 100.1 fL (80.0-100.0); Monocytes # (auto) 0.4 10 ^3/uL (0-1.3); Monocytes % (auto) 9.5 % (0.0-12.0); Neutrophils # (auto) 1.5 10 ^3/uL (1.6-8.6); Nucleated Red Blood Cells % 0.2 %; Platelet Count (auto) 232 10^3/uL (140-450); Red Blood Cells 3.33 10^6/uL (4.5-5.90); Red Cell Distribution Width 14.7 % (11.8-14.3); White Blood Cell 4.6 10^3/uL (4.4-10.8)
[2024-06-11 06:07] LABS: Alanine Aminotransferase 15 U/L (7-40); Albumin 3.5 g/dL (3.2-4.8); Alkaline Phosphatase 74 U/L (46-116); Anion Gap 6 (5-15); Aspartate Aminotransferase 19 U/L (13-40); BUN/Creatinine Ratio 9.6 (10.0-20.0); Blood Urea Nitrogen 9 mg/dL (9-23); Calcium 8.7 mg/dL (8.7-10.4); Carbon Dioxide 23 mmol/L (20-30); Chloride 107 mmol/L (98-107); Glucose 83 mg/dL (74-106); Potassium 3.5 mmol/L (3.5-5.1); Sodium 136 mmol/L (136-145)
[2024-06-11 06:08] LABS: Bilirubin, Total 1.2 mg/dL (0.2-1.0); Total Protein 7.5 g/dL (5.7-8.2)
[2024-06-11 07:30] VITALS: RESP 18
[2024-06-11 08:55] VITALS: BP 133/86; PULSE 63; RESP 16; TEMP 98.7; O2SAT 94
[2024-06-11 10:08] LABS: Hepatitis B Surface Antigen Negative (Negative)
[2024-06-11 10:29] LABS: Hepatitis C Antibody Negative (Negative)
[2024-06-11 12:30] VITALS: BP 129/77; PULSE 67; RESP 17; TEMP 98.1; O2SAT 97
[2024-06-11] MEDS ORDERED: QUEtiapine FUMARATE 25 MG TAB PO SCH (22:00)
[2024-06-11] MEDS ORDERED: METOPROLOL TARTRATE 25 MG TAB PO SCH (22:00)
[2024-06-12] MEDS ORDERED: amLODIPine BESYLATE 5 MG TAB PO SCH (10:00)
[2024-06-12] MEDS ORDERED: traZODone HCL 50 MG TAB PO SCH (10:00)
[2024-06-12] MEDS ORDERED: FLUoxetine HCL 20 MG CAP PO SCH ×2 (10:00)
== END 2024-06-11 15:10 | disposition home or self-care (01) | DRG 254 ==
LOC: ER 01:35 → OVERFLOW 10:23 → EAST 17:52
PROVIDERS: ADMIT Internal Medicine; ATTEND Internal Medicine
DX: K40.90 Unilateral inguinal hernia, without obstruction or gangrene, not specified as recurrent (principal); F20.9 Schizophrenia, unspecified; I10 Essential (primary) hypertension; Z79.899 Other long term (current) drug therapy; Z88.8 Allergy status to other drugs, medicaments and biological substances
CPT/HCPCS: 36415; 74177; 80053; 81001; 82306; 82607; 83036; 83690; 84443; 85025; 85610; 86803; 86850; 86900; 86901; 87340; 96361; 96365; 96375; G0378; J2405; J2543